=== PATIENT | female | born 1970 | race Caucasian/White ===

== ENCOUNTER 2017-10-08 19:55 | Emergency (ER) | payer MEDICAID ==
[2017-10-08 20:57] VITALS: BP 189/116
--- NOTE | 2017-10-08 21:53 | EDM.PDOC ---
ED HPI GENERAL MEDICAL PROBLEM - General Chief Complaint: Lower Extremity Injury/Pain Stated Complaint: SEWING MACHINE FELL ON LEFT FOOT Time Seen by Provider: 10/08/17 21:10 Source of Information: Reports: Patient History Limitations: Reports: No Limitations - History of Present Illness INITIAL COMMENTS - FREE TEXT/NARRATIVE: 47-year-old female dropped a sewing machine on her left foot. She has an abrasion on the top of the fourth toe, and a small abrasion on the posterior heel and significant pain with weightbearing. There is no other external physical injuries seen, no swelling or bruising. She is unable to bear weight however. Onset: Sudden Duration: Hour(s): (Within the last few hours) Location: Reports: Lower Extremity, Left Severity: Moderate Associated Symptoms: Reports: No Other Symptoms Left Ankle Pain Score (Numeric/FACES): 10 - Related Data Allergies Allergy/AdvReac Type Severity Reaction Status Date / Time adhesive Allergy Rash Verified 10/08/17 21:07 codeine Allergy Hives Verified 10/08/17 21:07 venom-wasp Allergy Anaphylactic Verified 10/08/17 21:07 Shock Home Meds: Home Meds NK [No Known Home Meds] 10/08/17 [History] Past Medical History HEENT History: Reports: Impaired Vision Cardiovascular History: Reports: Hypertension Respiratory History: Reports: COPD, Pneumonia, Recurrent Gastrointestinal History: Reports: GERD, Other (See Below) Other Gastrointestinal History: umbilical hernia. 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 degenerative disc disease Psychiatric History: Reports: Anxiety, Depression, Panic Attack, Psych Hospitalization(s), PTSD - Infectious Disease History Infectious Disease History: Reports: Chicken Pox - Past Surgical History HEENT Surgical History: Reports: Adenoidectomy, Myringotomy w Tube(s), Tonsillectomy Female Surgical History: Reports: Section, Cystectomy, Hysterectomy , Oophorectomy, Salpingo-Oophorectomy, Tubal Ligation, Other (See Below) Neurological Surgical History: Reports: Discectomy, Laminectomy, Other (See Below) Musculoskeletal Surgical History: Reports: Arthroscopic Knee Social & Family History - Tobacco Use Smoking Status *Q: Current Every Day Smoker Years of Tobacco use: 35 Packs/Tins Daily: 1 - Caffeine Use Caffeine Use: Reports: Coffee - Recreational Drug Use Recreational Drug Use: Yes Drug Use in Last 12 Months: Yes Recreational Drug Type: Reports: Marijuana/Hashish, Methamphetamine Recreational Drug Last Use: 1 month used weed Review of Systems - Review of Systems Review Of Systems: See Below Constitutional: Denies: Fever Respiratory: Denies: Shortness of Breath Cardiovascular: Denies: Chest Pain GI/Abdominal: Denies: Abdominal Pain Skin: Reports: Other (Small abrasions as mentioned in history of present illness ) ED EXAM, GENERAL - Physical Exam Exam: See Below Exam Limited By: No Limitations General Appearance: Alert, Anxious Respiratory/Chest: No Respiratory Distress Extremities: Other (Exam is otherwise limited to the left foot. The patient has a small abrasion on the top of the fourth toe, and a small abrasion behind the heel. She is very tender to palpation over the top of the foot and into the toes. There is no crepitus.) Course - Vital Signs Last Recorded V/S: Last Vital Signs Temp 96.8 F 10/08/17 21:09 Pulse 91 10/08/17 21:09 Resp 16 10/08/17 21:09 BP 189/116 H 10/08/17 21:09 Pulse Ox 98 10/08/17 21:09 - Orders/Labs/Meds Orders: Active Orders 24 hr Category Date Time Status Foot Comp Min 3V Lt [CR] Stat Exams 10/08/17 21:21 Taken DME for Discharge [COMM] Stat Oth 10/08/17 21:52 Ordered - Re-Assessments/Exams Free Text/Narrative Re-Assessment/Exam: 10/08/17 21:51 An x-ray of the foot was obtained that was completely normal, showed no fractures. An Burak wrap was applied to the foot and she was given crutches since she was unable to bear weight. I encouraged her to increase activity as tolerated. Departure - Departure Time of Disposition: 22:08 Disposition: Home, Self-Care 01 Condition: Good Clinical Impression: Contusion of foot, left Qualifiers: Encounter type: initial encounter Qualified Code(s): S90.32XA - Contusion of left foot, initial encounter - Discharge Information Instructions: Foot Contusion, [id number] Referrals: PCP,None [Primary Care Provider] - Forms: ED Department Discharge Care Plan Goals: Ibuprofen or naproxen should help, elevate foot when able. Use crutches for the next few days and increase activity as tolerated. Recheck next week if not improving satisfactorily, there is a insurance plan specialist at the clinic on Mondays and Tuesdays. - My Orders Last 24 Hours: My Active Orders 10/08/17 21:21 Foot Comp Min 3V Lt [CR] Stat 10/08/17 21:52 DME for Discharge [COMM] Stat - Assessment/Plan Last 24 Hours: My Active Orders 10/08/17 21:21 Foot Comp Min 3V Lt [CR] Stat 10/08/17 21:52 DME for Discharge [COMM] Stat
--- NOTE | 2017-10-11 08:39 | CR ---
Foot Comp Min 3V Lt CLINICAL HISTORY: Pain, trauma FINDINGS: There is no acute fracture or dislocation within the foot. No destructive changes are prese nt. There is some mild hammertoe deformities. IMPRESSION: No acute bony process.
== END 2017-10-08 22:08 | disposition home or self-care (01) ==
LOC: JP.ED 19:55
DX: S90.32XA Contusion of left foot, initial encounter (principal); I10 Essential (primary) hypertension; J44.9 Chronic obstructive pulmonary disease, unspecified; K21.9 Gastro-esophageal reflux disease without esophagitis; F17.210 Nicotine dependence, cigarettes, uncomplicated; F41.9 Anxiety disorder, unspecified; F32.9 Major depressive disorder, single episode, unspecified; Z88.5 Allergy status to narcotic agent; Z91.030 Bee allergy status; W20.8XXA Other cause of strike by thrown, projected or falling object, initial encounter; Z87.440 Personal history of urinary (tract) infections
CPT/HCPCS: 73630-26-LT; 73630-LT; 99284

== ENCOUNTER 2017-12-09 10:02 | Emergency (ER) | payer MEDICAID ==
[2017-12-09] MEDS ORDERED: HYDROmorphone 1 MG/ML Syringe IM ONE (10:35)
[2017-12-09] MEDS ORDERED: Ondansetron 4 MG Tab.DIS PO ONE (10:36)
--- NOTE | 2017-12-09 10:38 | EDM.PDOC ---
ED HPI GENERAL MEDICAL PROBLEM - General Chief Complaint: Trauma Stated Complaint: HURT RT ANKLE Time Seen by Provider: 12/09/17 10:36 Source of Information: Reports: Patient History Limitations: Reports: No Limitations - History of Present Illness INITIAL COMMENTS - FREE TEXT/NARRATIVE: pt stepped wrong and twisted her rt ankle. She has alot of swelling laterally. She is having alot of pain Onset: Today, Sudden Duration: Hour(s): Location: Reports: Lower Extremity, Right Associated Symptoms: Reports: No Other Symptoms Right Ankle Pain Score (Numeric/FACES): 10 - Related Data Allergies Allergy/AdvReac Type Severity Reaction Status Date / Time adhesive Allergy Rash Verified 10/08/17 21:07 codeine Allergy Hives Verified 10/08/17 21:07 venom-wasp Allergy Anaphylactic Verified 10/08/17 21:07 Shock Home Meds: Home Meds NK [No Known Home Meds] 10/08/17 [History] Past Medical History HEENT History: Reports: Impaired Vision Cardiovascular History: Reports: Hypertension Respiratory History: Reports: COPD, Pneumonia, Recurrent Gastrointestinal History: Reports: GERD, Other (See Below) Other Gastrointestinal History: umbilical hernia. 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 degenerative disc disease Psychiatric History: Reports: Anxiety, Depression, Panic Attack, Psych Hospitalization(s), PTSD - Infectious Disease History Infectious Disease History: Reports: Chicken Pox - Past Surgical History HEENT Surgical History: Reports: Adenoidectomy, Myringotomy w Tube(s), Tonsillectomy Female Surgical History: Reports: Section, Cystectomy, Hysterectomy , Oophorectomy, Salpingo-Oophorectomy, Tubal Ligation, Other (See Below) Neurological Surgical History: Reports: Discectomy, Laminectomy, Other (See Below) Musculoskeletal Surgical History: Reports: Arthroscopic Knee Social & Family History - Tobacco Use Smoking Status *Q: Current Every Day Smoker Years of Tobacco use: 29 Packs/Tins Daily: 1 - Caffeine Use Caffeine Use: Reports: Coffee - Recreational Drug Use Recreational Drug Use: Yes Drug Use in Last 12 Months: Yes Recreational Drug Type: Reports: Marijuana/Hashish Recreational Drug Use Frequency: Socially Review of Systems - Review of Systems Review Of Systems: See Below Constitutional: Reports: No Symptoms Ears: Reports: No Symptoms Nose: Reports: No Symptoms Mouth/Throat: Reports: No Symptoms Respiratory: Reports: No Symptoms Cardiovascular: Reports: No Symptoms GI/Abdominal: Reports: No Symptoms Genitourinary: Reports: No Symptoms Musculoskeletal: Reports: Other ( severe pain in rt ankle. ) Skin: Reports: No Symptoms ED EXAM, GENERAL - Physical Exam Exam: See Below Free Text/Narrative:: Pt arrived with pain in her rt ankle. She had alot of swelling on the lateral aspect of the ankle. She turned the ankle and heard something pop/ Exam Limited By: No Limitations General Appearance: Alert, Anxious, Moderate Distress Nose: Normal Inspection Throat/Mouth: Normal Inspection Head: Atraumatic Neck: Normal Inspection Respiratory/Chest: No Respiratory Distress Extremities: Other (rt ankle is quite swollen on the lateral aspect. ) Neurological: Alert, Oriented Psychiatric: Anxious, Other ( very agitated. ) Course - Vital Signs Last Recorded V/S: Last Vital Signs Temp 36.1 C 12/09/17 11:00 Pulse 67 12/09/17 11:48 Resp 16 12/09/17 11:48 BP 144/98 H 12/09/17 11:48 Pulse Ox 97 12/09/17 11:48 - Orders/Labs/Meds Meds: Medications Discontinued Medications Generic Name Dose Route Start Last Admin Trade Name Freq PRN Reason Stop Dose Admin Hydrocodone Bitart/Acetaminophen 1 tab 12/09/17 12:42 12/09/17 12:47 Swain 325-5 Mg PO 12/09/17 12:43 1 tab ONETIME ONE Administration Hydromorphone HCl 1 mg 12/09/17 10:35 12/09/17 10:40 Dilaudid IM 12/09/17 10:36 1 mg ONETIME ONE Administration Ondansetron HCl 4 mg 12/09/17 10:36 12/09/17 10:42 Zofran Odt PO 12/09/17 10:37 4 mg ONETIME ONE Administration - Re-Assessments/Exams Free Text/Narrative Re-Assessment/Exam: 12/09/17 12:56 xray of the ankle was obtained which did not reveal a fracture. Pt was given dilaudid .5 im and norco 5/325 Departure - Departure Time of Disposition: 12:42 Disposition: Home, Self-Care 01 Condition: Fair Clinical Impression: Right ankle sprain - Discharge Information Instructions: Ankle Sprain, [id number] Referrals: PCP,None [Primary Care Provider] - Forms: ED Department Discharge Care Plan Goals: crutches-- fit the ones the pt brought in, elevate, cool pack, motrin 600mg qid , norco 5/325 q6h prn for pain #8, stirup splint.
[2017-12-09 11:49] VITALS: BP 144/98
--- NOTE | 2017-12-09 12:15 | CR ---
Ankle Min 3V Rt HISTORY: swelling and injury to the ankle. FINDINGS: No acute fracture or dislocation is identified. Bony architecture and joint ankle mortise are preser flori. There is mild soft tissue swelling laterally. IMPRESSION: Mild lateral soft tissue swelling right ankle. No acute fracture or dislocation is identified.
[2017-12-09] MEDS ORDERED: Acetaminophen/HYDROcodone 325-5 MG Tab PO ONE (12:42)
== END 2017-12-09 13:09 | disposition home or self-care (01) ==
LOC: JP.ED 10:02
DX: S93.401A Sprain of unspecified ligament of right ankle, initial encounter (principal); Z88.5 Allergy status to narcotic agent; I10 Essential (primary) hypertension; F17.210 Nicotine dependence, cigarettes, uncomplicated; Z91.09 Other allergy status, other than to drugs and biological substances; X50.9XXA Other and unspecified overexertion or strenuous movements or postures, initial encounter
CPT/HCPCS: 73610-26-RT; 73610-RT; 96372; 99284-25; A9270-GY; J1170